=== PATIENT | female | born 1995 | race Caucasian/White ===

== ENCOUNTER 2020-06-23 11:27 | Outpatient (REF) | payer OTHER, SELFPAY | END 2020-06-23 11:28 | disposition home or self-care (01) | LOC: HO.LAB 11:27 | PROVIDERS: Visit Provider Internal Medicine | DX: Z20.828 Contact with and (suspected) exposure to other viral communicable diseases (principal) | CPT/HCPCS: 36415; C9803; U0003 ==

== ENCOUNTER 2020-10-14 09:37 | Outpatient (REF) | payer OTHER, SELFPAY ==
[2020-10-14 09:55] LABS: COVID-19 Test Negative (Negative)
== END 2020-10-14 09:38 | disposition home or self-care (01) ==
LOC: HO.LAB 09:37
PROVIDERS: Visit Provider Internal Medicine
DX: Z20.822 Contact with and (suspected) exposure to COVID-19 (principal)
CPT/HCPCS: 36415; 87635; C9803

== ENCOUNTER 2020-11-07 11:48 | Outpatient (REF) | payer OTHER, SELFPAY ==
[2020-11-07 12:15] LABS: COVID-19 Test Negative (Negative)
== END 2020-11-07 11:49 | disposition home or self-care (01) ==
LOC: HO.LAB 11:48
PROVIDERS: Visit Provider Internal Medicine
DX: Z20.822 Contact with and (suspected) exposure to COVID-19 (principal)
CPT/HCPCS: 36415; 87635; C9803

== ENCOUNTER 2021-04-06 11:06 | Outpatient (REF) | payer OTHER, SELFPAY | END 2021-04-06 11:07 | disposition home or self-care (01) | LOC: HO.LAB 11:06 | PROVIDERS: Visit Provider Internal Medicine | DX: Z20.822 Contact with and (suspected) exposure to COVID-19 (principal) | CPT/HCPCS: C9803; U0003; U0005 ==